=== PATIENT | male | born 2000 | race Caucasian/White ===

== ENCOUNTER → 2024-11-29 09:43 | Outpatient (CLI) | payer OTHER, SELFPAY ==
--- NOTE | 2024-11-29 09:45 | DI.RAD.S_ITS ---
PROCEDURE: XR FINGER RT MIN 2V INDICATIONS: jammed 1st digit, possible infection @ PIP TECHNIQUE: PA hand, 2 views of the index finger acquired. COMPARISON: None. FINDINGS: Bones: No acute fractures or dislocations. No suspicious bony lesions. Soft tissues: No suspicious soft tissue calcifications. Nonspecific soft tissue edema in the index finger most prominent over the proximal interphalangeal joint. IMPRESSION: Nonspecific soft tissue edema within the index finger that is most prominent over the 2nd proximal interphalangeal joint. No acute osseous abnormality. Approved by: Urbano Moreira M.D. on 11/29/2024 at 13:46
== END ==
LOC: RAD 09:45
PROVIDERS: Referring Provider Physician Assistant; Visit Provider Physician Assistant
DX: S69.91XA Unspecified injury of right wrist, hand and finger(s), initial encounter (principal); R60.0 Localized edema; X58.XXXA Exposure to other specified factors, initial encounter
CPT/HCPCS: 73140